=== PATIENT | male | born 1935 | race Caucasian/White ===

== ENCOUNTER 2017-08-25 09:07 | Outpatient (CLI) | payer MEDICARE, BC ==
[2017-08-25 10:36] LABS: #Basophils 0.1 thou/uL (0.0-0.2); #Eosinphils 0.1 thou/uL (0.0-0.7); #Monocytes 0.8 thou/uL (0.11-0.59); #Neutrophils 4.7 thou/uL (1.40-6.50); %Basophils 0.9 % (0.0-1.0); %Eosinophils 1.5 % (0.0-10.0); %Lymphocytes 26.1 % (21.0-51.0); %Monocytes 10.7 % (0.0-10.0); %Neutrophils 60.8 % (42.0-75.0); Mean Corpuscular Hemoglobin 29.2 pg (27.0-31.0); Mean Corpuscular Volume 88.5 fl (80.0-94.0); Mean Platelet Volume 7.2 fL (7.4-10.4); Platelet Count 306 thou/uL (130-400); RBC Distribution Width 12.3 % (11.5-14.5); Red Blood Cell (RBC) Count 4.46 mill/uL (4.70-6.10); White Blood Cell (WBC) Count 7.7 thou/uL (4.8-10.8)
[2017-08-25 10:48] LABS: PTT 27.7 SEC (22.9-36.1)
[2017-08-25 10:50] LABS: Anion Gap 11 mmol/L (10-20); BUN (Urea Nitrogen) 21 mg/dL (8.4-25.7); Calc. Creatinine Clearance 0 mL/min (70-130); Calcium 9.6 mg/dL (7.8-10.44); Carbon Dioxide 26 mmol/L (23-31); Chloride 103 mmol/L (98-107); Estimated GFR-MDRD Greater than 90; Glucose 192 mg/dL (83-110); Sodium 136 mmol/L (136-145)
[2017-08-25 10:52] LABS: INR-International Normal Ratio 1.1; Prothrombin Time 14.3 SEC (12.0-14.7)
--- NOTE | 2017-08-26 08:27 | EKG ---
Test Reason : Blood Pressure : / mmHG Vent. Rate : 054 BPM Atrial Rate : 054 BPM P-R Int : 274 ms QRS Dur : 090 ms QT Int : 416 ms P-R-T Axes : 065 097 -09 degrees QTc Int : 394 ms Sinus bradycardia with 1st degree A-V block with Possible Premature atrial complexes with Abberant co nduction vs PVC. Rightward axis Anterior infarct , age undetermined Abnormal ECG No previous ECGs available Confirmed by KAVYA SALCIDO ([id number]) on 08/26/2017 8:26:33 AM Referred By: OLU Confirmed By:KAVYA SALCIDO
== END 2017-08-25 09:08 | disposition home or self-care (01) ==
LOC: LABBT 09:07
PROVIDERS: ATTEND Neurological Surgery
DX: Z01.818 Encounter for other preprocedural examination (principal); M47.12 Other spondylosis with myelopathy, cervical region
CPT/HCPCS: 80048; 85025; 85610; 85730; 93005; 93010

== ENCOUNTER 2017-08-29 05:27 | Day surgery (SDC) | payer MEDICARE, BC ==
[2017-08-25 09:41] VITALS: BMI 24.1
[2017-08-29] MEDS ORDERED: CEFAZOLIN/Water 2 GM/20 ML SYRINGE ONE (06:01)
[2017-08-29] MEDS ORDERED: Sodium Chloride 0.9% 0 ML ONE (06:17)
[2017-08-29] MEDS ORDERED: Thrombin 5000 UNITS/5 ML VIAL ONE (06:17)
[2017-08-29] MEDS ORDERED: Fentanyl 100 MCG/2 ML VIAL ONE ×4 (06:57→11:27)
[2017-08-29] MEDS ORDERED: Sodium Chloride 0.9% 10 ML ONE (07:30)
--- NOTE | 2017-08-29 12:12 | OP ---
DATE OF PROCEDURE: 08/29/2017 SURGEON: Mariel Du M.D. COMMERCIAL INSTALLER: Rory Lopez PA-C. PREOPERATIVE INDICATION: Prevent neurological deterioration. PREOPERATIVE DIAGNOSES: Cervical spondylosis with cervical stenosis, cord compression, and possible myelopathy. POSTOPERATIVE DIAGNOSES: Cervical spondylosis with cervical stenosis, cord compression, and possible myelopathy. OPERATIVE PROCEDURE: Anterior cervical diskectomy, intervertebral arthrodesis, placement of interver tebral biomechanical device, local morselized autograft, morselized Allograft, and anterior cervical plating C4-C5 and C5-C6. PREOPERATIVE MEDICATION: Ancef 2 grams IV. DRAIN NUMBER: Zero. DRAIN TYPE: None. OPERATIVE DICTATION: The patient was brought to the operating room. General endotracheal anesthesia was induced. The patient's head was carefully positioned in gel-filled donut shaped head rest and a lateral fluoro radiograph was used to plan our incision. The rest of the neck was sterilely prepped and draped. We opened with a 10 blade knife and controlled bleeding with bipolar cautery. We disse cted sharply to the platysma. We opened the platysma in line with the incision and continued our dis section medial to the sternocleidomastoid, lateral to the trachea and esophagus all the way down to t he prevertebral space. We placed a marker at C4-C5 and took a lateral fluoro radiograph to confirm t he level upon which were operating. We then elevated the longus colli muscles off the anterior surfa ce of C4, C5, and C6, and placed a self-retaining retractor beneath those muscles. Distraction pin w as placed at C4 and C6 and we distracted across the intervening two interspaces. We incised the inte rspaces with a 15 blade knife and removed disk contents using curettes and rongeurs. The operative m icroscope was brought in the field. Under microscopic magnification using microsurgical techniques, we removed the remainder of the inter vertebral disk. We removed posterior osteophytes at each interspace and the posterior longitudinal l igament from one neural foramen all the way to the other neural foramen. There was no further compre ssion of the dura. We could see the spinal cord pulsating behind the dura. We then turned our atten tion to arthrodesis. Prepared the endplates for grafting using an angled curet and used a bone rasp to measure the height of the interspace to 6 mm at each of the two interspaces. Two separate 6 mm PEEK intervertebral ava ts were brought into the field. A posterior and anterior osteophytes were cleaned of their soft tiss ue attachments after removal and this bone was morcellized into demineralized bone matrix as our fusi on substrate. The substrate was packed into the PEEK grafts and the grafts were advanced into the in terspaces under radiographic guidance to the appropriate depth. We then removed distraction pins and the operating microscope. A 31 mm anterior cervical plate was brought into the field. We drilled mapping pilot holes through the plate into the vertebral bodies at C4, C5, and C6 and affixed the plate with 14 mm screws. We used six an gle screws at C6 and variable angle screws at C4 and C5. We engaged the locking mechanism over each of the 6 screws. AP and lateral fluoro radiographs confirmed adequate position of instrumentation. We irrigated copiously with bacitracin irrigation. We closed the wound in anatomic layers and applie d a sterile dressing. This is a clean case and no contamination.E
[2017-08-29] MEDS ORDERED: Ondansetron HCl/PF 4 MG/2 ML Vial ONE (16:32)
[2017-08-29] MEDS ORDERED: ePHEDrine/0.9% NaCl/PF SYRINGE 50 mg/10 ml ONE (16:32)
[2017-08-29] MEDS ORDERED: PROPOFOL 200 MG/20 ML VIAL ONE (16:32)
[2017-08-29] MEDS ORDERED: Glycopyrrolate 0.2 MG/ML 5 ML SYRINGE ONE (16:32)
[2017-08-29] MEDS ORDERED: Dexamethasone 20 MG/5 ML VIAL ONE (16:32)
[2017-08-29] MEDS ORDERED: Lidocaine 1% PF 5 ML VIAL ONE (16:32)
== END 2017-08-29 13:20 | disposition home or self-care (01) ==
LOC: SDC 05:27 → EDSTATUS 09:15 → SDC 13:20
PROVIDERS: ATTEND Neurological Surgery
PROC: 0RG20A0 Fusion of 2 or more Cervical Vertebral Joints with Interbody Fusion Device, Anterior Approach, Anterior Column, Open Approach (ICD-10-PCS; principal; 2017-08-29)
PROC: 0RG2070 Fusion of 2 or more Cervical Vertebral Joints with Autologous Tissue Substitute, Anterior Approach, Anterior Column, Open Approach (ICD-10-PCS; 2017-08-29)
PROC: 0RT30ZZ Resection of Cervical Vertebral Disc, Open Approach (ICD-10-PCS; 2017-08-29)
DX: M47.12 Other spondylosis with myelopathy, cervical region (principal); M50.021 Cervical disc disorder at C4-C5 level with myelopathy; Z79.82 Long term (current) use of aspirin; Z79.84 Long term (current) use of oral hypoglycemic drugs; Z88.1 Allergy status to other antibiotic agents; Z91.048 Other nonmedicinal substance allergy status
CPT/HCPCS: 20930; 20937; 22551; 22552; 22853 ×2; 76001; 96374; C1713 ×2; C1776; A4216; J0131; J1100; J2001; J2405; J2704; J3010; J3370; J3490

== ENCOUNTER 2017-10-19 10:11 | Outpatient (CLI) | payer MEDICARE, BC ==
--- NOTE | 2017-10-19 10:51 | RAD ---
CERVICAL SPINE 2 VIEWS AP LAERAL STANDARD: HISTORY: M54.2, cervicalgia. COMPARISON: None. FINDINGS: Open mouth odontoid view is normal. No acute fracture or malalignment. ACDF hardware at C4-C6. 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 Moderate extensive atherosclerotic calcifications of the carotid bulbs. Lung apices are clear. IMPRESSION: Satisfactory appearance of the anterior cervical diskectomy and fusion hardware without complication. POS: [facility]ITTNEY
== END 2017-10-19 10:12 | disposition home or self-care (01) ==
LOC: TBSIIMAG 10:11
PROVIDERS: ATTEND Neurological Surgery
DX: M54.2 Cervicalgia (principal); Z98.1 Arthrodesis status
CPT/HCPCS: 72040

== ENCOUNTER 2022-04-04 10:30 | Outpatient (CLI) | payer MEDICARE, BC | END 2022-04-04 10:31 | disposition home or self-care (01) | LOC: SCSRAD 10:30 | PROVIDERS: ATTEND Neurological Surgery | DX: M47.22 Other spondylosis with radiculopathy, cervical region (principal); Z98.1 Arthrodesis status | CPT/HCPCS: 72050 ==

== ENCOUNTER 2022-05-24 10:41 | Outpatient (CLI) | payer MEDICARE, BC | END 2022-05-24 10:42 | disposition home or self-care (01) | LOC: TBSIIMAG 10:41 | PROVIDERS: ATTEND Neurological Surgery | DX: M54.50 Low back pain, unspecified (principal); M47.22 Other spondylosis with radiculopathy, cervical region; M43.16 Spondylolisthesis, lumbar region; M50.123 Cervical disc disorder at C6-C7 level with radiculopathy; M89.38 Hypertrophy of bone, other site; Z98.1 Arthrodesis status | CPT/HCPCS: 72050; 72110 ==